=== PATIENT | female | born 2000 | race Asian ===

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

== ENCOUNTER 2019-01-11 15:00 | Outpatient (CLI) | payer MEDICAID, OTHER ==
[2019-01-17 16:21] LABS: CREATININE, URINE 1.25 g/24 h (0.50-2.15); TOTAL VOLUME 1100 mL
== END 2019-01-11 23:59 | disposition home or self-care (01) ==
LOC: LAB.R 15:00
PROVIDERS: ATTEND Nurse Practitioner Gerontology
DX: E24.9 Cushing's syndrome, unspecified (principal)
CPT/HCPCS: 82530; 82570

== ENCOUNTER 2020-04-30 17:21 | Outpatient (CLI) | payer OTHER | END 2020-04-30 17:22 | disposition home or self-care (01) | LOC: COV 17:21 | PROVIDERS: ATTEND Family Medicine | DX: U07.1 COVID-19 (principal) ==